=== PATIENT | male | born 1935 | race Caucasian/White ===

== ENCOUNTER 2018-08-25 09:42 | Outpatient (CLI) | payer MEDICARE, BC ==
--- NOTE | 2018-08-25 16:08 | NM ---
RADIONUCLIDE BONE SCAN: HISTORY: Prostate cancer. Initial staging. FINDINGS: Physiologic uptake of radiotracer. Degenerative uptake at the knees, feet, wrists, and each acromioc lavicular joint. Heterogeneously increased uptake also overlies the right sternoclavicular joint and the right 6th costovertebral joint. These are favored to be degenerative abnormalities. IMPRESSION: Arthritic type uptake. No reliable scintigraphic evidence of osseous metastatic disease. POS: [facility]
== END 2018-08-25 09:43 | disposition home or self-care (01) ==
LOC: NM 09:42
PROVIDERS: ATTEND Urology
DX: C61 Malignant neoplasm of prostate (principal)
CPT/HCPCS: 78306; A9503

== ENCOUNTER 2018-09-18 09:22 | Outpatient (CLI) | payer MEDICARE, BC ==
--- NOTE | 2018-09-18 13:09 | CT ---
CT ABDOMEN WITH CONTRAST: CT PELVIS WITH CONTRAST: HISTORY: Recently diagnosed prostate cancer. COMPARISON: None. FINDINGS: ABDOMEN: The lung bases are clear. Areas of scar/atelectasis in the lung bases are noted. No maxwell s or consolidation. Calcification of the mitral annulus and aortic valve. Normal heart size. No si gnificant pericardial fluid. The visualized aorta has a normal caliber. No periaortic fat stranding . Unremarkable gallbladder. Patent portal vein. The liver, spleen, pancreas, and adrenal glands have appropriate attenuation and enhancement. There is a hypodensity in the spleen, measuring 0.5 cm. The lesion cannot be further characterized due to size. No gastrohepatic, retrocrural, or periportal lymphadenopathy. Symmetric enhancement of the kidneys. There is an exophytic hypodensity in the mid pole of the left kidney with an attenuation coefficient of -4 Hounsfield units, compatible with a 2 cm cyst. There is subtle prominence of the left ureter with subtle increased density (axial image 72, series 2). A ur othelial lesion cannot excluded. No mesenteric mass, lymphadenopathy, free air, or free fluid. Limited evaluation of the alimentary canal due to lack of oral contrast. No evidence for bowel obstr uction. The ileocecal junction is normal. normal caliber appendix. Scattered fecal material in a n ondistended, nondilated colon. Occasional diverticulum. No diverticulitis. PELVIS: The urinary bladder is unremarkable. The prostate gland does have some calcifications witho ut evidence of enlargement. there is no evidence of inguinal or internal or external iliac lymphaden opathy. There is a small amount of stranding of the fat just superficial to the left and right psoas muscles, at the level of the S1 vertebral body. There is a 0.6 cm hypodensity, superficial and slig htly medial to the left psoas muscle, although of uncertain significance. There are no lytic or blastic lesions in the osseous structures. Sclerotic focus in the left femoral neck, felt to represent a bone island. IMPRESSION: 1. No evidence of lymphadenopathy in the abdomen and pelvis. 2. Possible urothelial lesion in the mid portion of the left ureter. Urology consultation for retro grade opacification is recommended. POS: [facility]
== END 2018-09-18 09:23 | disposition home or self-care (01) ==
LOC: SCSCT 09:22
PROVIDERS: ATTEND Radiology Radiation Oncology
DX: C61 Malignant neoplasm of prostate (principal)
CPT/HCPCS: 74177; 82565

== ENCOUNTER 2019-05-07 13:53 | Inpatient (IN) | payer MEDICARE, BC ==
[2019-05-07] MEDS ORDERED: Sodium Chloride 0.9% 100 ML ONE (14:34)
[2019-05-07] MEDS ORDERED: Cefepime 1 GM VIAL ONE (14:34)
[2019-05-07 14:53] LABS: Hemoglobin 6.8 g/dL (14.0-18.0); Mean Corpuscular Hemoglobin 34.2 pg (27.0-31.0); RBC Distribution Width 17.3 % (11.5-14.5); Red Blood Cell (RBC) Count 1.99 mill/uL (4.70-6.10); White Blood Cell (WBC) Count 34.1 thou/uL (4.8-10.8)
[2019-05-07 14:54] LABS: PTT 24.1 SEC (22.9-36.1); Prothrombin Time 13.2 SEC (12.0-14.7)
--- NOTE | 2019-05-07 14:59 | RAD ---
SINGLE VIEW CHEST: Date: 05/07/19 COMPARISON: None. HISTORY: Abnormal blood order/laboratory value. FINDINGS: Single view of the chest shows a normal sized cardiomediastinal silhouette. There is no evidence of c onsolidation, mass, or pleural effusion. The bones are unremarkable. IMPRESSION: No evidence of acute cardiopulmonary disease. POS: [facility]
[2019-05-07 15:09] LABS: ALT (SGPT) 9 U/L (8-55); AST (SGOT) 11 U/L (5-34); Albumin 3.2 g/dL (3.4-4.8); Alkaline Phosphatase 94 U/L (40-110); Anion Gap 12 mmol/L (10-20); BUN (Urea Nitrogen) 24 mg/dL (8.4-25.7); Bilirubin, Total 0.9 mg/dL (0.2-1.2); Calc. Creatinine Clearance 0 mL/min (70-130); Calcium 8.9 mg/dL (7.8-10.44); Carbon Dioxide 27 mmol/L (23-31); Chloride 99 mmol/L (98-107); Estimated GFR-MDRD 89; Globulin 1.5 g/dL (2.4-3.5); Glucose 183 mg/dL (83-110); Potassium 4.3 mmol/L (3.5-5.1); Protein, Total 4.7 g/dL (5.8-8.1); Sodium 134 mmol/L (136-145)
[2019-05-07 15:19] LABS: Mean Platelet Volume 8.6 fL (7.4-10.4); Platelet Count 220 thou/uL (130-400)
[2019-05-07 15:20] LABS: Band 37 % (5-11); Lymphocytes 1 % (21-51); MDiff Complete? YES; Macrocytosis SLIGHT = 6-15 cells (100X) (0-5/hpf); Metamyelocyte 2 % (0-0); Monocytes 1 % (0-10); Neutrophil 59 % (42-75); Platelet Morphology Comment Appears Adequate; Polychromasia SLIGHT = 2-3 cells (100X) (0-2/hpf)
[2019-05-07 15:42] LABS: Bacteria/HPF None Seen HPF (None Seen); Bilirubin Negative (Negative); Blood, Urine Trace (Negative); Clarity Clear (Clear); Glucose, Urine (Dipstick) Greater than 1000 mg/dL (Negative); Leukocyte Negative Leu/uL (Negative); Nitrite Negative (Negative); Protein, Urine (Dipstick) Negative (Neg-Trace); Squamous Epithelial 0-3 HPF (0-3); Urobilinogen Normal mg/dL (Less than 2); WBC/HPF 0-3 HPF (0-3)
[2019-05-07] MEDS ORDERED: Pantoprazole 40 MG VIAL ONE (16:18)
[2019-05-07 17:45] LABS: Lactic Acid 1.2 mmol/L (0.5-2.2)
[2019-05-07] MEDS ORDERED: Sodium Chloride 0.9% 1,000 ML IV SCH (21:00)
[2019-05-07 22:03] LABS: Hemoglobin 8.3 g/dL (14.0-18.0); Platelet Count 69 thou/uL (130-400)
[2019-05-07 22:49] LABS: Reticulocyte Count 2.3 % (0.5-1.5)
--- NOTE | 2019-05-08 02:03 | HP ---
CHIEF COMPLAINT: Weakness. HISTORY OF PRESENT ILLNESS: This patient is an 83-year-old male, with a history of prostate cancer, who follows with Dr. Obrien. The patient has now received 4/6 doses of chemotherapy treatment. The patient reports that about 1 week ago, he started feeling generally weak. He has had progressive weakness since then. His reports that he has become very pale. He has also had some dark stools. He has had some low-grade fever around 100. This is typical for him for the week following his chemotherapy. He also had Neulasta following his chemotherapy treatment, which was administered (Neulasta) on Tuesday. Apparently, the patient was seen in Dr. Obrien's office today for followup labs. Once those results were known, he was referred to the emergency department for followup. REVIEW OF SYSTEMS: He has had poor appetite for about 2 weeks. He has poor p.o. intake of fluids. He has had some diarrhea initially following treatment and then constipation since. He has had some mild acid related stomach ache. PAST MEDICAL HISTORY: Prostate cancer, diabetes, lymphedema, obstructive sleep apnea, on CPAP, hypertension and hyperlipidemia PAST SURGICAL HISTORY: None. FAMILY HISTORY: Father had lung cancer. He was a POW in [employer] and smoked a great deal at that time. His mother he reports , was a homicide. SOCIAL HISTORY: The patient quit smoking in the 1970s. He only smoked a pipe prior to that. He has modest intake of social alcohol. He is . His would be his surrogate decision maker and he is a DNAR. ALLERGIES: NONE. MEDICATIONS: 1. Glipizide 5 mg 1/2 tablet p.o. daily. 2. Lasix 20 mg daily. 3. Amlodipine 5 mg daily. 4. Atorvastatin 10 mg daily. 5. Losartan 100 mg daily. 6. Finasteride 0.5 mg one p.o. at bedtime. 7. Aspirin 81 mg daily. 8. Chromium picolinate 400 mg, dosing regimen is unknown. 9. Casodex 50 mg daily. 10. Metformin 500 mg p.o. b.i.d. PHYSICAL EXAMINATION: VITAL SIGNS: Initially, BP was 86/41, pulse 105, respirations 18, temperature is 98.3, O2 saturations 93% on room air. Most recent was 111/52, pulse 89, respirations 18, temperature is 98.8. GENERAL APPEARANCE: Age-appropriate male. He is in no distress. He is awake, alert, oriented, pleasant, cooperative. HEENT: PERRL. No OP lesions. NECK: Supple and symmetric with no lymphadenopathy, JVD, or carotid bruits. HEART: Regular rate and rhythm without murmurs, gallops, or rubs. LUNGS: Clear to auscultation bilaterally with good chest wall expansion and air exchange. ABDOMEN: Soft, nontender, and nondistended. Positive bowel sounds. No masses. No organomegaly. EXTREMITIES: No cyanosis, clubbing, or edema. PSYCHIATRIC: Normal affect and behavior. NEUROLOGIC: The patient has normal cognition, normal cranial nerve function, and moves all extremities spontaneously with no focal deficits. LABORATORY DATA: White count is 34,000, hemoglobin 6.8, MCV 104, platelets 220. Differential shows 59% neutrophils, 37% bands, 1% lymphocytes. There are 2% metamyelocytes. INR is 1.0, PTT 24.1. Sodium 134, potassium 4.3, chloride 99, CO2 is 27, BUN 24, creatinine 0.83, glucose 183, lactic acid 3.2, subsequent 1.2, calcium 8.9, AST 11, ALT 9, alkaline phosphatase 94. Troponin 0.015. Albumin 3.2, globulin 1.5. Urinalysis shows glucose, trace blood, 4 to 6 red cells. Stool for occult blood is negative. Chest x-ray shows no acute cardiopulmonary disease. IMPRESSION AND PLAN: 1. Anemia, etiology is unclear. He does not have a history of significant anemia. Could potentially be related to his prostate cancer therapy. He has received 2 units in the emergency department. We will check a reticulocyte count and B12 and folate given the macrocytosis. We will need to check with Dr. Obrien tomorrow to determine if he believes this could potentially be related to his treatments. He does not have positive occults in the stool and his rectal exam in the emergency department did not appear to show any specific evidence of blood. 2. Severe leukocytosis, likely due to the patient's Neulasta. He does have a significant bandemia, which still could be consistent with the Neulasta. He has had blood cultures obtained. He has received a dose of antibiotics and will again follow up with Dr. Obrien tomorrow to determine whether he believes this is indeed related to the Neulasta. 3. Prostate cancer. Continue with the home regimen with the Casodex. 4. Diabetes mellitus. Continue with glipizide and metformin. 5. Hypertension. Continue losartan and amlodipine. 6. Hyperlipidemia. Continue with atorvastatin. Job ID: [id number]
[2019-05-08 06:07] LABS: ALT (SGPT) 8 U/L (8-55); AST (SGOT) 11 U/L (5-34); Albumin 2.8 g/dL (3.4-4.8); Alkaline Phosphatase 68 U/L (40-110); Anion Gap 10 mmol/L (10-20); BUN (Urea Nitrogen) 16 mg/dL (8.4-25.7); Bilirubin, Total 0.9 mg/dL (0.2-1.2); Calc. Creatinine Clearance 0 mL/min (70-130); Calcium 7.9 mg/dL (7.8-10.44); Carbon Dioxide 26 mmol/L (23-31); Chloride 105 mmol/L (98-107); Estimated GFR-MDRD Greater than 90; Globulin 1.3 g/dL (2.4-3.5); Glucose 85 mg/dL (83-110); Potassium 3.9 mmol/L (3.5-5.1); Protein, Total 4.1 g/dL (5.8-8.1); Sodium 137 mmol/L (136-145)
[2019-05-08 06:52] LABS: Hemoglobin 7.7 g/dL (14.0-18.0); MDiff Complete? YES; Mean Corpuscular HGB CONC 33.8 g/dL (32.0-36.0); Mean Corpuscular Hemoglobin 33.4 pg (27.0-31.0); Mean Corpuscular Volume 98.8 fL (78.0-98.0); Mean Platelet Volume 8.2 fL (7.4-10.4); Platelet Count 177 thou/uL (130-400); RBC Distribution Width 17.6 % (11.5-14.5); Red Blood Cell (RBC) Count 2.29 mill/uL (4.70-6.10); White Blood Cell (WBC) Count 16.2 thou/uL (4.8-10.8)
[2019-05-08 06:53] LABS: Band 12 % (5-11); Eosinophils 1 % (0-10); Lymphocytes 5 % (21-51); Monocytes 1 % (0-10); Neutrophil 81 % (42-75)
[2019-05-08] MEDS ORDERED: Insulin Regular 300 UNITS/3 ML VIAL SC PRN ×2 (08:28)
[2019-05-08] MEDS ORDERED: Dextrose 50% Abboject 50 ML SYRINGE SLOW IVP PRN (08:28)
[2019-05-08] MEDS ORDERED: Dextrose 5% in Water 1,000 ML IV PRN (08:28)
[2019-05-08] MEDS ORDERED: Cefepime 2 GM in Sodium Chloride 0.9% 100 ML IVPB SCH (09:00)
[2019-05-08] MEDS: Sodium Chloride 0.9% 1,000 ML IV SCH ×2 (09:08→23:11)
[2019-05-08] MEDS: Bicalutamide 50 MG TAB PO SCH (09:08)
[2019-05-08] MEDS: metFORMIN 500 MG TAB PO SCH ×2 (09:08→17:31)
[2019-05-08 11:07] VITALS: BMI 40.3
[2019-05-08 11:41] LABS: Hemoglobin 8.1 g/dL (14.0-18.0)
[2019-05-08] MEDS ORDERED: hydrALAZINE 20 MG/ML VIAL SLOW IVP PRN (14:36)
[2019-05-08] MEDS ORDERED: Pantoprazole 40 MG VIAL IVP SCH (14:45)
[2019-05-08] MEDS ORDERED: GoLYTELY 4,000 ml Bottle PO SCH (15:30)
--- NOTE | 2019-05-08 16:39 | CON ---
DATE OF CONSULTATION: REASON FOR CONSULTATION: Prostate cancer. HISTORY OF PRESENT ILLNESS: Mr. Calix is a pleasant 83-year-old gentleman, who is undergoing treatment with Taxotere for metastatic prostate cancer. He has completed 4 cycles. His last cycle was on 05/03. He has been tolerating it well with no issues. On , the , he was noted to have a hemoglobin of 9.1. This was a drop from 14.1 at prior cycle. He stated he had been having some dark stools over the past several weeks. We did a stool guaiac and it was positive for blood in our clinic. He was referred to Dr. Alvarenga. Unfortunately, he did not make it to the appointment because he began to have shortness of breath and dizziness and presented here to the emergency room for shortness of breath and weakness. His CBC was 6.8 on arrival. His white count was 34, which was Neulasta effect. He was transfused 2 units of packed RBCs and admitted for further workup. He complains of generalized weakness, but denies any bright red blood. He continues to have dark stools. GI has been consulted. PAST MEDICAL HISTORY: 1. Metastatic prostate cancer. 2. Hypertension. 3. Diabetes, type 2. 4. Sleep apnea. 5. Chronic lower extremity edema. PAST SURGICAL HISTORY: 1. Bilateral cataract surgery. 2. Prostate biopsy. ALLERGIES: NO KNOWN DRUG ALLERGIES. HOME MEDICATIONS: 1. Amlodipine. 2. Aspirin. 3. Atorvastatin. 4. Betamethasone. 5. Calcium. 6. Chromium. 7. Dexamethasone. 8. Finasteride. 9. Lasix. 10. Glipizide. 11. Invokana. 12. Losartan. 13. Ozempic. 14. Flomax. 15. Vitamin D. FAMILY HISTORY: Father had throat cancer. SOCIAL HISTORY: , has 2 children. Lives with his spouse. Remote history of smoking. REVIEW OF SYSTEMS: Positive for stomach pain, dark stools, and weakness. Otherwise, negative. PHYSICAL EXAMINATION: VITAL SIGNS: Temperature is 98.2, pulse is 93, respiratory rate 18, BP is 123/57, and he is 95% on room air. GENERAL: This is a well-developed, well-nourished male, in no acute distress. HEENT: Normocephalic and atraumatic. Pupils are equal and reactive to light. NECK: Supple. CV: Regular rate and rhythm. LUNGS: Clear. ABDOMEN: Soft and nontender. Bowel sounds are positive. EXTREMITIES: There is no clubbing or cyanosis. SKIN: No rash. HEMATOLOGIC: No petechiae or purpura. NEUROLOGIC: Nonfocal. PSYCHIATRIC: He is alert, oriented, and appropriate. PERTINENT LABORATORY DATA AND X-RAYS: Current WBCs are 16.2, hemoglobin 8.1, hematocrit 24.4, and platelet count is 177,000. He has 81% neutrophils and 12% bands. PT is 13.2, INR is 1.0, and PTT is 24.1. Sodium is 137, potassium 3.9, chloride 105, CO2 is 26, BUN is 16, creatinine 0.7, calcium 7.9, bilirubin 0.9, AST is 11, ALT is 8, alkaline phosphatase is 68, serum total protein 4.1, albumin 2.8, globulin 3.1. B12 is 1409 and folic acid is 27. Chest x-ray showed no acute process. ASSESSMENT: 1. Prostate cancer, on chemotherapy with Taxotere. 2. New onset anemia with positive stool guaiac. DISCUSSION: The patient has received 2 units of packed RBCs with good response. GI has seen the patient and is planning endoscopic procedure yesterday to rule out GI bleed. His elevated white count is from Neulasta, which he received last week. We will follow along with his hospital course and monitor his CBC and transfuse as needed. Thank you for the consult. Job ID: [id number]
[2019-05-08] MEDS ORDERED: Bisacodyl 10 MG SUPP PR PRN (16:56)
[2019-05-08] MEDS ORDERED: Ondansetron ODT 4 MG TAB PO PRN (16:56)
[2019-05-08] MEDS ORDERED: Acetaminophen 325 MG TAB PO PRN (16:56)
[2019-05-08] MEDS ORDERED: Ondansetron PF 4 MG/2 ML Vial IVP PRN (16:56)
[2019-05-08] MEDS ORDERED: Calcium Carbonate 500 MG ChewTAB PO PRN (16:56)
--- NOTE | 2019-05-08 17:02 | CON ---
DATE OF CONSULTATION: 05/08/2019 CHIEF COMPLAINT: Weakness, anemia, and black stool. HISTORY OF PRESENT ILLNESS: Mr. Calix is an 83-year-old man with prostate cancer, for which he received chemotherapy with Taxotere last . He has been on aspirin 81 mg. He has been receiving steroids along with chemotherapy. He reports black stools on and off over the last few weeks. On after his chemotherapy, he had multiple black stools and then diarrhea with black stools at night. He took Imodium the next day and he had no bowel movements for a couple of days and then again formed black stool on Tuesday, that was his last bowel movement. He has had no nausea or vomiting. He does get epigastric burning pain intermittently lasting minutes at a time or more, for which he has been taking Tums as needed. This helps temporarily. He has lost around 8 pounds since starting chemotherapy. He has had 4/6 doses of his chemo so far. He has had radiation as well. He has had no other diarrhea. No constipation. No nausea or vomiting. No chest pain or shortness of breath. He has been very weak lately. PAST MEDICAL HISTORY: 1. Prostate cancer. 2. Diabetes mellitus. 3. Obstructive sleep apnea, on CPAP. 4. Hypertension. 5. Hyperlipidemia. 6. His last colonoscopy report was 15 years ago. PAST SURGICAL HISTORY: Negative. FAMILY HISTORY: Negative for GI malignancy. SOCIAL HISTORY: Occasional alcohol. No drugs. Quit smoking in the past. ALLERGIES: NO KNOWN DRUG ALLERGIES. MEDICATIONS: Prior to admission; 1. Glipizide. 2. Lasix. 3. Amlodipine. 4. Atorvastatin. 5. Losartan. 6. Finasteride. 7. Aspirin 81 mg. 8. Metformin. 9. Casodex. 10. Chromium. 11. He has been on prednisone recently. REVIEW OF SYSTEMS: Negative x10 systems reviewed except as stated in the history of present illness. PHYSICAL EXAMINATION: VITAL SIGNS: Temperature 98.2, pulse 93, blood pressure 123/57. GENERAL: He is in no acute distress. Alert and oriented x3. HEENT: Eyes have no scleral icterus. Oropharynx is clear without lesions. No cervical or supraclavicular lymphadenopathy. He is pale. LUNGS: Clear to auscultation bilaterally. HEART: Regular rate and rhythm without murmur. ABDOMEN: Soft, nontender, nondistended. Bowel sounds are present. EXTREMITIES: 1+ pitting lower extremity edema. LABORATORY DATA: White blood cell count is 16.2 today, his white count was 34 yesterday, but that was after receiving Neulasta last week; hemoglobin is 8.1 after 2 units transfusion, hemoglobin prior to transfusion yesterday was 6.8; MCV 98; ferritin is over 300 at the Hematology/Oncology Clinic. INR 1.0. Creatinine 0.7, bilirubin 0.9, AST 11, ALT 8, alkaline phosphatase 68, albumin 2.8, B12 1409, folate 27.3. IMPRESSION: 1. GI bleed, presenting with severe anemia with a drop in his hemoglobin from 15.3 back in December down to 6.8 yesterday. He is status post 2 units transfusion. He has black stool on rectal exam consistent with more likely an upper gastrointestinal bleed. His last colonoscopy was 15 years ago per his report. He has been on aspirin and some steroids and was at risk for peptic ulcer. 2. Anemia of acute blood loss. 3. Prostate cancer, status post chemotherapy most recently last . He also received Neulasta last week. RECOMMENDATIONS: 1. We will plan EGD and colonoscopy tomorrow to evaluate for bleeding source. I would favor an upper GI bleeding source more likely. 2. Proton pump inhibitor IV. Job ID: [id number]
[2019-05-08] MEDS ORDERED: Vancomycin HCl 1 GM in Premix Bag 1 BAG IVPB SCH (17:15)
--- NOTE | 2019-05-08 17:41 | PRG ---
DATE OF SERVICE: 05/08/2019 PRIMARY CARE PHYSICIAN: Dr. Owens. SUBJECTIVE: An 83-year-old male with prostate cancer with recent chemotherapy, presented to the hospital with generalized weakness. He also had some low-grade fever around 100 degrees at home. He also recently received Neulasta. He was evaluated by Dr. Obrien and was found to have abnormal labs, for which he was sent to the emergency room for evaluation. In the emergency room, he was found to have hemoglobin of 6.8. He also has been having dark tarry stool recently. He denies any nausea or vomiting at this time. REVIEW OF SYSTEMS: He has poor appetite for last 2 to 3 weeks. He also had some loose stool followed by constipation. He denies significant weight loss. No chest pain or palpitations reported. Telemetry monitoring by my review showed sinus rhythm. CURRENT MEDICATIONS: Reviewed. PHYSICAL EXAMINATION: VITAL SIGNS: Temperature 98.9, pulse of 95, respirations of 18, O2 saturation 92 % on room air, blood pressure 115/55. Weight of 250 pounds. GENERAL: An 83-year-old male, in no apparent distress, feels generally weak. HEENT: Head, atraumatic and normocephalic. Sclerae anicteric. NECK: Supple. No JVD. LUNGS: Diminished air entry at bilateral bases. No wheezing, rales, or rhonchi. HEART: S1 and S2 present. Regular. No rubs or gallops. ABDOMEN: Soft, nontender. Bowel sounds present. EXTREMITIES: Edema present. NEUROLOGY: Grossly nonfocal. PSYCHIATRIC: Alert, awake, and oriented x3. Normal affect. Code status was verified. The patient and the family requested full code. We will cancel the DNR order. Blood culture 1/2 was positive for gram-positive cocci. Stool for occult blood was negative. LABORATORY FINDINGS: Hemoglobin 8.1. PT/INR, PTT normal range. BUN 16, creatinine 0.7. LFTs are normal. Albumin 2.8. Vitamin B12 of 1409. Folic acid 27. Urinalysis showed greater than 1000 of glucose, no WBC. Blood culture as discussed above. IMAGING STUDIES: Chest x-ray by my review was negative for infiltrate or edema. IMPRESSION: 1. Anemia suspected to be due to chronic GI blood loss. 2. Leukocytosis with significant bandemia. Possibilities could be infection related versus leukocytosis due to Neulasta. 3. 1/2 blood culture positive for gram-positive cocci. 4. Moderate protein-calorie malnutrition. 5. Generalized weakness, multifactorial. 6. Prostate cancer, on chemotherapy. 7. Diabetes mellitus type 2. 8. Obstructive sleep apnea, on CPAP. 9. Hypertension. 10. Hyperlipidemia. PLAN: We will start him on insulin sliding scale. Start Protonix drip. Consult Gastroenterology. Empiric vancomycin for bacteremia. Continue glipizide and metformin. Resume Flomax. We will hold amlodipine and losartan for now due to blood pressure on the lower side. Consult Physical Therapy. Continue Casodex. GI and Hematology input appreciated. We will recheck labs in a.m. We will recheck labs if he develops any melena or hematochezia. Plan was discussed with the patient and the family in detail, they stated understanding. Job ID: [id number] MTDD
[2019-05-08] MEDS ORDERED: Vancomycin HCl 1.75 GM in Sodium Chloride 0.9% 500 ML IVPB SCH (18:00)
[2019-05-08] MEDS: Pantoprazole 40 MG VIAL IVP SCH (21:05)
[2019-05-08] MEDS: Tamsulosin HCl 0.4 MG CAP PO SCH (21:05)
[2019-05-09] MEDS: Sodium Chloride 0.9% 1,000 ML IV SCH (02:55)
[2019-05-09 05:41] LABS: ALT (SGPT) 11 U/L (8-55); AST (SGOT) 14 U/L (5-34); Albumin 2.7 g/dL (3.4-4.8); Alkaline Phosphatase 64 U/L (40-110); Anion Gap 10 mmol/L (10-20); BUN (Urea Nitrogen) 9 mg/dL (8.4-25.7); Bilirubin, Total 0.8 mg/dL (0.2-1.2); Calc. Creatinine Clearance 131 mL/min (70-130); Calcium 7.6 mg/dL (7.8-10.44); Carbon Dioxide 26 mmol/L (23-31); Chloride 107 mmol/L (98-107); Estimated GFR-MDRD Greater than 90; Globulin 1.6 g/dL (2.4-3.5); Glucose 99 mg/dL (83-110); Potassium 3.6 mmol/L (3.5-5.1); Protein, Total 4.3 g/dL (5.8-8.1); Sodium 139 mmol/L (136-145)
[2019-05-09 06:04] LABS: Band 17 % (5-11); Eosinophils 4 % (0-10); Hemoglobin 7.8 g/dL (14.0-18.0); Lymphocytes 15 % (21-51); MDiff Complete? YES; Mean Corpuscular HGB CONC 33.8 g/dL (32.0-36.0); Mean Corpuscular Hemoglobin 33.8 pg (27.0-31.0); Mean Corpuscular Volume 99.9 fL (78.0-98.0); Mean Platelet Volume 8.8 fL (7.4-10.4); Monocytes 5 % (0-10); Neutrophil 59 % (42-75); Platelet Count 203 thou/uL (130-400); RBC Distribution Width 17.4 % (11.5-14.5); White Blood Cell (WBC) Count 7.2 thou/uL (4.8-10.8)
[2019-05-09] MEDS ORDERED: PROPOFOL 200 MG/20 ML VIAL ONE (09:23)
[2019-05-09] MEDS: metFORMIN 500 MG TAB PO SCH ×2 (09:29→17:48)
--- NOTE | 2019-05-09 11:48 | OP ---
DATE OF PROCEDURE: 05/09/2019 PROCEDURE PERFORMED: Colonoscopy with biopsy. PREOPERATIVE DIAGNOSIS: An 83-year-old male with history of anemia, melena, occult GI bleeding. He is undergoing colonoscopy. POSTOPERATIVE DIAGNOSES: 1. Sigmoid diverticular disease with occasional diverticula over the right colon. 2. Small sessile transverse colon polyp, removed with biopsy forceps. 3. Hemorrhoids. DESCRIPTION OF PROCEDURE: The patient was placed on his left lateral position and was given sedation by Anesthesia Department. A rectal exam was done before the scope was advanced into the rectum. No lesions felt on rectal exam. A Pentax video colonoscope was introduced into the rectum and advanced all the way into the cecum. The prep is very good. The mucosa appears normal throughout the colon with normal vascular pattern. The appendiceal orifice, ileocecal wall, and cecum, no lesion seen. He had occasional diverticula over the ascending colon area. The hepatic flexure, no lesion. The distal transverse colon showed a 5 mm sessile polyp. This was removed with biopsy forceps. The descending colon, no lesion seen. The sigmoid colon shows scattered diverticula. Rectum showed large hemorrhoids. Job ID: [id number]
--- NOTE | 2019-05-09 11:59 | OP ---
DATE OF PROCEDURE: 05/09/2019 PROCEDURE PERFORMED: Esophagogastroduodenoscopy with biopsy. PREOPERATIVE DIAGNOSES: Melena, anemia. POSTOPERATIVE DIAGNOSES: 1. Mildly erythematous friable GE junction. 2. Small hiatal hernia. 3. Focal gastritis of the proximal gastric body. 4. Deep ulceration measuring approximately 2 x 1 cm over the pre-pyloric area, biopsied. 5. Normal duodenum. DESCRIPTION OF PROCEDURE: The patient was placed on his left lateral position and was given sedation by Anesthesia Department. A Pentax video gastroscope under direct vision was passed down the oropharynx, past the GE junction into the stomach and subsequently into the descending duodenum. The esophageal mucosa appeared normal throughout. However, in the GE junction, the mucosa was slightly friable and edematous. He had a small hiatal hernia. Retroflexion failed to show any pathology in fundus or cardia. Over the proximal gastric body, there were multiple areas of erythematous mucosa indicative of gastritis. In the incisura angularis, no lesion seen. The patient had a very large and deep ulceration over the pre-pyloric area. measured 2 x 1 cm. Biopsy was obtained from marginal ulcers. In the duodenal bulb, descending duodenum, no pathology seen. The stomach decompressed and scope removed. RECOMMENDATION: 1. Protonix 40 once a day. 2. Iron supplement. 3. Await gastric biopsy and decide on further recommendation. Job ID: [id number]
[2019-05-09] MEDS: Atorvastatin Calcium 10 MG TAB PO SCH (13:40)
[2019-05-09] MEDS: Bicalutamide 50 MG TAB PO SCH (13:40)
[2019-05-09] MEDS: Pantoprazole 40 MG VIAL IVP SCH (13:40)
[2019-05-09] MEDS: Finasteride 5 MG TAB PO SCH (13:40)
--- NOTE | 2019-05-09 19:40 | PDOC.HOSPP ---
- Subjective Encounter Date: 05/09/19 Encounter Time: 13:00 Subjective: Patient seen and examined for Anemia. s/p EGD and Colon. No CP/SOB/Melena. No new complaints. No overnight events - Objective Vital Signs & Weight: Vital Signs (12 hours) Temp Pulse Resp BP Pulse Ox 05/09/19 15:13 97.4 F L 97 20 135/61 93 L 05/09/19 13:37 97.7 F 89 18 150/67 H 94 L Weight Admit Weight 250 lb Weight 254 lb 1.6 oz I&O: 05/08/19 05/09/19 05/10/19 06:59 06:59 06:59 Intake Total 700 2960 Output Total 0 725 Balance 700 2235 Result Diagrams: 05/09/19 04:25 05/09/19 04:25 Additional Labs: Accuchecks 05/09/19 05/09/19 05/09/19 16:37 13:59 05:52 POC Glucose 134 H 102 103 05/08/19 20:23 POC Glucose 118 H EKG Reviewed by me: Yes (Tele SR) Hospitalist ROS - Review of Systems Cardiovascular: denies: chest pain, palpitations, orthopnea, paroxysmal noc. dyspnea, edema, light headedness, other Gastrointestinal: denies: nausea, vomiting, abdominal pain, diarrhea, constipation, melena, hematochezia, other - Medication Medications: Active Medications Generic Name Dose Route Start Last Admin Trade Name Freq PRN Reason Stop Dose Admin Atorvastatin Calcium 10 mg 05/09/19 09:00 05/09/19 13:40 Lipitor PO 10 mg DAILY MONIQUE Administration Bicalutamide 50 mg 05/08/19 09:00 05/09/19 13:40 Casodex PO 50 mg DAILY MONIQUE Administration Finasteride 5 mg 05/09/19 09:00 05/09/19 13:40 Proscar PO 5 mg DAILY MONIQUE Administration Glipizide 2.5 mg 05/08/19 08:00 05/09/19 09:29 Glucotrol Xl PO Not Given QAM-WM MONIQUE Metformin HCl 500 mg 05/08/19 08:00 05/09/19 17:48 Glucophage PO 500 mg BID-WM MONIQUE Administration Sodium Chloride 10 ml 05/08/19 09:00 05/09/19 13:41 Flush - Normal Saline IVF 10 ml Q12HR MONIQUE Administration Tamsulosin HCl 0.4 mg 05/08/19 21:00 05/08/19 21:05 Flomax PO 0.4 mg HS MONIQUE Administration - Exam General Appearance: NAD Neck: supple, no JVD Heart: RRR, no gallops, no rubs Respiratory: CTAB, no rales Gastrointestinal: soft, non-tender, normal bowel sounds Extremities: 1+ LE edema Neurological: no new deficit Hosp A/P - Plan DVT proph w/SCDs 1. Generalized weakness/Anemia suspected to be due to chronic GI blood loss. 2. Leukocytosis with significant bandemia - probably due to Neulasta. 3. CN Staph 1/2 - contamination 4. Moderate protein-calorie malnutrition. 5. PUD 6. Prostate cancer, on chemotherapy. 7. Diabetes mellitus type 2. 8. Obstructive sleep apnea, on CPAP. 9. Hypertension. 10. Hyperlipidemia. PLAN: s/p EGB - PUD s/p Colon - Diverticulosis/Polyp HH in AM No need for Atbx - I confirmed with Dr Obrien [facility] eval Cont CPAP HS Cont other meds as above
[2019-05-09] MEDS: Tamsulosin HCl 0.4 MG CAP PO SCH (21:08)
[2019-05-10] MEDS ORDERED: Furosemide 20 MG/2 ML VIAL SLOW IVP SCH (09:45)
[2019-05-10] MEDS ORDERED: Losartan 25 MG TAB PO SCH (09:45)
[2019-05-10] MEDS ORDERED: Potassium Chloride 20 MEQ TAB PO SCH (10:00)
[2019-05-10] MEDS: Atorvastatin Calcium 10 MG TAB PO SCH (10:56)
[2019-05-10] MEDS: Finasteride 5 MG TAB PO SCH (10:56)
[2019-05-10] MEDS: metFORMIN 500 MG TAB PO SCH (10:56)
[2019-05-10] MEDS: Bicalutamide 50 MG TAB PO SCH (10:57)
--- NOTE | 2019-05-10 10:59 | PDOC.MOPN ---
Interval History: Feels better, denies bleeding. - Vital Signs Vital Signs: Vital Signs (12 hours) Temp Pulse Resp BP Pulse Ox 05/10/19 06:52 93 L 05/10/19 03:44 98.7 F 100 18 134/63 93 L 05/10/19 00:00 92 L Weight Admit Weight 250 lb Weight 255 lb 11.2 oz - Physical Exam General: Alert, Oriented x3, No acute distress HEENT: Atraumatic, PERRLA, EOMI, Mucous membr. moist/pink Lungs: Clear to auscultation, Normal air movement Cardiovascular: Regular rate, Normal S1, Normal S2, No murmurs, Gallops, Rubs Abdomen: Normal bowel sounds, Soft, No tenderness, No hepatospenomegaly, No masses Skin: No rashes, No breakdown, No significant lesion Neurological: Normal gait, Normal speech, Strength at 5/5 X4 ext, Normal tone, Sensation intact, Cranial nerves 3-12 NL, Reflexes 2+ - Labs Result Diagrams: 05/10/19 04:30 05/09/19 04:25 Lab results: Laboratory Results - last 24 hr 05/10/19 05:45: POC Glucose 116 H 05/10/19 04:30: Hgb 8.0 L, Hct 23.7 L 05/09/19 20:29: POC Glucose 128 H 05/09/19 16:37: POC Glucose 134 H 05/09/19 13:59: POC Glucose 102 Status: lab reviewed by me A/P - Problem (1) Prostate CA Current Visit: Yes Code(s): C61 - MALIGNANT NEOPLASM OF PROSTATE Status: Acute (2) Anemia Current Visit: Yes Code(s): D64.9 - ANEMIA, UNSPECIFIED Status: Acute - Plan Plan: Patient hgb stable. Likely home today follow-up clinic at next cycle chemo call for concerns.
[2019-05-10 16:49] VITALS: BP 127/58; TEMP 98
--- NOTE | 2019-05-11 14:09 | DIS ---
DATE OF ADMISSION: 05/07/2019 DATE OF DISCHARGE: 05/10/2019 DISCHARGE DISPOSITION: Home with [facility]. FOLLOWUP: 1. Follow up with Dr. Hernandez Owens in 1 week. 2. Follow up with GI and Oncology Clinic in 1 to 2 weeks. ALLERGIES: NO KNOWN DRUG ALLERGIES. DISCHARGE MEDICATIONS: Protonix 40 mg twice daily for 1 month and then daily. All other home medications were left unchanged. The patient was seen and examined on the day of discharge. Denies any new complaints. No chest pain, shortness of breath, or palpitations reported. INPATIENT PLASTICS ENGINEER: Gastroenterology and Oncology Service. INPATIENT PROCEDURES: 1. On 05/09/2019, the patient underwent colonoscopy that showed sigmoid diverticular disease with small sessile transverse colon polyp that was removed. It also showed hemorrhoids. 2. EGD showed a mildly erythematous friable GE junction with small hiatal hernia, focal gastritis of the proximal gastric body. It also showed deep ulceration measuring approximately 2 x 1 cm over the prepyloric area that was biopsied. BRIEF HOSPITAL COURSE: The patient is an 83-year-old male with prostate cancer, diabetes mellitus type 2, hypertension, and obstructive sleep apnea, presented to the hospital with generalized weakness from Dr. Obrien's office. His hemoglobin on admission was 6.8. He received 2 units of PRBC. His hemoglobin stabilized around 8. He underwent EGD and colonoscopy as discussed above. PPIs have been recommended. Symptomatically, he feels much better. He has been cleared by Gastroenterology for discharge. FINAL DIAGNOSES: 1. Generalized weakness, multifactorial. 2. Anemia secondary to chronic GI blood loss. 3. Leukocytosis with significant bandemia on admission, probably secondary to Neulasta. 4. One of two coagulase-negative Staphylococcus secondary to contamination. 5. Moderate protein-calorie malnutrition. 6. Peptic ulcer disease. 7. Prostate cancer, on chemotherapy. 8. Diabetes mellitus type 2. 9. Obstructive sleep apnea, on CPAP. 10. Hypertension. 11. Hyperlipidemia. 12. Morbid obesity with a BMI of 41.3. 13. Hyponatremia. 14. Lactic acidosis on admission. PLAN: Plan of care was discussed with the patient in detail. He stated understanding. Job ID: [id number]
== END 2019-05-10 16:45 | disposition home or self-care (01) | DRG 812 ==
LOC: ERS 13:53 → ERHOLD 16:20 → 2NO 20:48
PROVIDERS: ADMIT Internal Medicine; ATTEND Internal Medicine
PROC: 30233N1 Transfusion of Nonautologous Red Blood Cells into Peripheral Vein, Percutaneous Approach (ICD-10-PCS; 2019-05-07)
PROC: 0DBL8ZX Excision of Transverse Colon, Via Natural or Artificial Opening Endoscopic, Diagnostic (ICD-10-PCS; principal; 2019-05-09)
PROC: 0DB78ZX Excision of Stomach, Pylorus, Via Natural or Artificial Opening Endoscopic, Diagnostic (ICD-10-PCS; 2019-05-09)
DX: D62 Acute posthemorrhagic anemia (principal); E44.0 Moderate protein-calorie malnutrition; Z68.41 Body mass index [BMI] 40.0-44.9, adult; E87.1 Hypo-osmolality and hyponatremia; E87.2 Acidosis; F17.210 Nicotine dependence, cigarettes, uncomplicated; E11.9 Type 2 diabetes mellitus without complications; C61 Malignant neoplasm of prostate; G47.33 Obstructive sleep apnea (adult) (pediatric); I10 Essential (primary) hypertension; K64.9 Unspecified hemorrhoids; K57.30 Diverticulosis of large intestine without perforation or abscess without bleeding; K27.9 Peptic ulcer, site unspecified, unspecified as acute or chronic, without hemorrhage or perforation; K44.9 Diaphragmatic hernia without obstruction or gangrene; K29.60 Other gastritis without bleeding; E66.01 Morbid (severe) obesity due to excess calories; E78.5 Hyperlipidemia, unspecified; Z98.42 Cataract extraction status, left eye; Z98.41 Cataract extraction status, right eye; Z76.89 Persons encountering health services in other specified circumstances
CPT/HCPCS: 36415; 36416; 36430; 71045; 80053; 81003; 81015; 82274; 82607; 82746; 83605; 83735; 83880; 84484; 85007; 85014; 85018; 85025; 85027; 85046; 85610; 85730; 86850; 86900; 86901; 87040; 87149; 88305; 88312; 93005; 96365; 96366; 96375; C9113; J0692; J1940; J2704; J3370; J3490; J7050; P9016